=== PATIENT | male | born 1985 | race Two or more races ===

== ENCOUNTER 2023-05-05 01:14 | Observation (INO) | payer OTHER ==
[2023-05-05] MEDS ORDERED: SODIUM CHLORIDE 0.9% 500 ML INFUS.BAG IV ONE ×2 (01:23→03:19)
[2023-05-05 02:20] LABS: BASO % 0.4 % (0-2.0); EOS % 0.7 % (0-4.5); HEMATOCRIT 43.8 % (35.4-49); HEMOGLOBIN 14.7 GM/dL (11.7-16.9); LYMPH % 41.3 % (8-40); MCH 30.1 pg (25.7-33.7); MCHC 33.6 g/dl (32.0-35.9); MEAN CELL VOLUME 89.4 fl (80-96); MEAN PLT VOLUME 9.4 fl (7.5-11.1); NEUT % 52.6 % (42.8-82.8); PLATELET COUNT 167 10^3/uL (134-434); RDW 14.4 % (11.9-15.9); WHITE BLOOD COUNT 5.6 K/mm3 (4.0-10.0)
[2023-05-05 02:34] LABS: INR 1.12 (0.83-1.09)
[2023-05-05 02:37] LABS: ACTIVATED PTT 25.9 SECONDS (25.2-36.5)
[2023-05-05 02:41] LABS: CHLORIDE 113 mmol/L (98-107); POTASSIUM 5.5 mmol/L (3.5-5.1); SODIUM 141 mmol/L (136-145)
[2023-05-05 02:44] LABS: CALCIUM 8.2 mg/dL (8.5-10.1)
[2023-05-05 02:45] LABS: ALBUMIN 3.9 g/dl (3.4-5.0); ANION GAP 7 MMOL/L (8-16); BLOOD UREA NITROGEN 11.1 mg/dL (7-18); CO2 22 mmol/L (21-32); GLUCOSE,RANDOM 90 mg/dL (74-106); MAGNESIUM 2.3 mg/dL (1.8-2.4)
[2023-05-05 02:47] LABS: CREATININE 1.1 mg/dL (0.55-1.3); SGOT/AST 55 U/L (15-37); SGPT/ALT 47 U/L (13-61)
[2023-05-05 02:48] LABS: BILIRUBIN,TOTAL 0.3 mg/dL (0.2-1)
[2023-05-05 02:49] LABS: TOT PROT 8.1 g/dl (6.4-8.2)
[2023-05-05 02:50] LABS: ALK PHOS 90 U/L (45-117)
[2023-05-05 04:57] LABS: PH,URINE 5.5 (5.0-8.0); URINE APPEARANCE CLEAR; URINE BILIRUBIN NEGATIVE (NEGATIVE); URINE COLOR YELLOW; URINE GLUCOSE (UA) NEGATIVE (NEGATIVE); URINE KETONE NEGATIVE (NEGATIVE); URINE LEUK ESTERASE NEGATIVE (NEGATIVE); URINE NITRITE NEGATIVE (NEGATIVE); URINE PROTEIN NEGATIVE (NEGATIVE); URINE UROBILINOGEN 0.2 mg/dL (0.2-1.0)
[2023-05-05 05:03] LABS: PHENCYCLIDINE,URINE NEGATIVE (NEGATIVE)
[2023-05-05 05:05] LABS: COCAINE, UR NEGATIVE (NEGATIVE); METHADONE, UR NEGATIVE (NEGATIVE); OPIATES, URI NEGATIVE (NEGATIVE); URINE AMPHETAMINES NEGATIVE (NEGATIVE); URINE BARBITURATES NEGATIVE (NEGATIVE)
[2023-05-05 05:12] LABS: URINE BENZODIAZEPINES POSITIVE (NEGATIVE)
[2023-05-05] MEDS ORDERED: levETIRAcetam 500 MG/5 ML INJECTION VIAL IVPB ONE (05:12)
[2023-05-05] MEDS ORDERED: DOCUSATE SODIUM 100 MG CAPSULE (FP) PO PRN (05:23)
[2023-05-05] MEDS ORDERED: ACETAMINOPHEN 1000 MG/100 ML BAG IVPB PRN (05:26)
[2023-05-05 06:15] LABS: VENOUS BASE EXCESS -14.5 mmol/L (-2-2); VENOUS O2 SATURATION 88.6 % (70-80); VENOUS PH 7.265 (7.310-7.410)
[2023-05-05] MEDS: SODIUM CHLORIDE 1,000 ML IV SCH ×2 (06:18→22:10)
[2023-05-05 06:25] LABS: POTASSIUM 4.2 mmol/L (3.5-5.1)
[2023-05-05 06:27] LABS: BLOOD UREA NITROGEN 9.2 mg/dL (7-18)
[2023-05-05 07:39] VITALS: BMI 28.7
[2023-05-05] MEDS: LACOSAMIDE 100 MG TABLET PO SCH (10:30)
[2023-05-05] MEDS: cloBAZam 10 MG TABLET PO SCH (10:35)
[2023-05-05 17:48] VITALS: RESP 20
[2023-05-05] MEDS ORDERED: cloBAZam 10 MG TABLET PO SCH (22:00)
[2023-05-05] MEDS: levETIRAcetam 500 MG TABLET (FP) PO SCH (22:04)
[2023-05-05] MEDS ORDERED: LACOSAMIDE 50 MG TABLET PO SCH (22:09)
[2023-05-05] MEDS: LACOSAMIDE 50 MG TABLET PO SCH (22:21)
[2023-05-06] MEDS: LACOSAMIDE 100 MG TABLET PO SCH (00:22)
[2023-05-06] MEDS ORDERED: ACETAMINOPHEN 325 MG TABLET (FP) PO PRN (05:23)
[2023-05-06] MEDS: SODIUM CHLORIDE 1,000 ML IV SCH ×2 (05:42→12:05)
[2023-05-06 09:19] LABS: POTASSIUM 3.9 mmol/L (3.5-5.1)
[2023-05-06 09:23] LABS: ALBUMIN 3.2 g/dl (3.4-5.0)
[2023-05-06 09:24] LABS: BLOOD UREA NITROGEN 7.9 mg/dL (7-18); CALCIUM 8.5 mg/dL (8.5-10.1); MAGNESIUM 1.9 mg/dL (1.8-2.4)
[2023-05-06 09:24] LABS: BASO % 0.4 % (0-2.0); HEMATOCRIT 36.7 % (35.4-49); HEMOGLOBIN 12.6 GM/dL (11.7-16.9); LYMPH % 33.5 % (8-40); MCH 30.5 pg (25.7-33.7); MCHC 34.2 g/dl (32.0-35.9); MEAN CELL VOLUME 89.2 fl (80-96); MEAN PLT VOLUME 9.5 fl (7.5-11.1); MONO % 6.4 % (3.8-10.2); NEUT % 58.7 % (42.8-82.8); PLATELET COUNT 130 10^3/uL (134-434); RBC 4.12 M/mm3 (4.00-5.60); RDW 14.5 % (11.9-15.9); WHITE BLOOD COUNT 5.8 K/mm3 (4.0-10.0)
[2023-05-06 09:27] LABS: BILIRUBIN,TOTAL 0.4 mg/dL (0.2-1); CREATININE 0.8 mg/dL (0.55-1.3); PHOSPHOROUS 2.8 mg/dL (2.5-4.9); TOT PROT 6.1 g/dl (6.4-8.2)
[2023-05-06 09:29] LABS: ACTIVATED PTT 26.6 SECONDS (25.2-36.5)
[2023-05-06 09:31] LABS: INR 1.15 (0.83-1.09); PROTHROMBIN TIME (PATIENT) 13.3 SEC (9.7-13.0)
[2023-05-06] MEDS: cloBAZam 10 MG TABLET PO SCH (10:11)
[2023-05-06] MEDS: LACOSAMIDE 50 MG TABLET PO SCH (10:12)
[2023-05-06] MEDS: levETIRAcetam 500 MG TABLET (FP) PO SCH (10:13)
[2023-05-06 14:11] VITALS: BP 147/85; PULSE 65; TEMP 98
== END 2023-05-06 15:57 | disposition home or self-care (01) ==
LOC: JER 01:14 → INTOOBSV 03:53 → JERBED 03:53 → UNDOADMOB 03:53 → JERBED 03:53 → UNDOADMOB 05:21 → JERBED 05:21 → J6S 09:19
PROVIDERS: ADMIT Internal Medicine; ATTEND Internal Medicine
PROC: 3E033NZ Introduction of Analgesics, Hypnotics, Sedatives into Peripheral Vein, Percutaneous Approach (ICD-10-PCS; principal; 2023-05-05)
PROC: 3E033GC Introduction of Other Therapeutic Substance into Peripheral Vein, Percutaneous Approach (ICD-10-PCS; 2023-05-05)
PROC: 3E0337Z Introduction of Electrolytic and Water Balance Substance into Peripheral Vein, Percutaneous Approach (ICD-10-PCS; 2023-05-05)
DX: G40.909 Epilepsy, unspecified, not intractable, without status epilepticus (principal); F10.99 Alcohol use, unspecified with unspecified alcohol-induced disorder; M62.82 Rhabdomyolysis
CPT/HCPCS: 36415; 70450-TC; 71045-TC-FY; 80048; 80053; 80177; 80307; 81003; 82550; 82553; 82803; 82962; 83605; 83735; 84100; 84484; 85025; 85610; 85730; 86850; 86900; 86901; 87086; 93005; 93010; 96361; 96374; 96375; 99285-25; G0378

== ENCOUNTER 2024-02-11 16:17 | Emergency (ER) | payer MEDICARE, OTHER ==
[2024-02-11 16:26] VITALS: BP 136/69; PULSE 66; RESP 20; TEMP 98.6; BMI 30.4
[2024-02-11] MEDS ORDERED: DEXAMETHASONE SOD PHOSPHATE 10 MG/1 ML VIAL ONE (17:24)
[2024-02-11] MEDS: DEXAMETHASONE SOD PHOSPHATE 10 MG/1 ML VIAL IM ONE (17:32)
== END 2024-02-11 17:40 | disposition home or self-care (01) ==
LOC: JERFT 16:17
PROC: 3E023GC Introduction of Other Therapeutic Substance into Muscle, Percutaneous Approach (ICD-10-PCS; principal; 2024-02-11)
DX: M54.31 Sciatica, right side (principal)
CPT/HCPCS: 99284-25; J1100

== ENCOUNTER 2024-02-28 09:45 | Emergency (ER) | payer MEDICARE, OTHER ==
[2024-02-28 10:22] VITALS: BMI 29.9
[2024-02-28] MEDS: SODIUM CHLORIDE 0.9% 500 ML INFUS.BAG IV STA (10:47)
[2024-02-28 10:53] LABS: BASO % 0.9 % (0-2.0); EOS % 1.3 % (0-4.5); LYMPH % 28.7 % (8-40); MCHC 34.2 g/dl (32.0-35.9); MEAN CELL VOLUME 90.6 fl (80-96); MEAN PLT VOLUME 9.5 fl (7.5-11.1); MONO % 7.7 % (3.8-10.2); NEUT % 61.4 % (42.8-82.8); PLATELET COUNT 131 10^3/uL (134-434); RBC 4.53 M/mm3 (4.00-5.60); RDW 14.2 % (11.9-15.9); WHITE BLOOD COUNT 5.6 K/mm3 (4.0-10.0)
[2024-02-28 10:54] LABS: URINE APPEARANCE CLEAR; URINE BILIRUBIN NEGATIVE (NEGATIVE); URINE COLOR YELLOW; URINE GLUCOSE (UA) NEGATIVE (NEGATIVE); URINE KETONE NEGATIVE (NEGATIVE); URINE LEUK ESTERASE NEGATIVE (NEGATIVE); URINE NITRITE NEGATIVE (NEGATIVE); URINE PROTEIN NEGATIVE (NEGATIVE); URINE UROBILINOGEN 0.2 mg/dL (0.2-1.0)
[2024-02-28 11:49] LABS: CHLORIDE 108 mmol/L (98-107); POTASSIUM 4.2 mmol/L (3.5-5.1); SODIUM 138 mmol/L (136-145)
[2024-02-28 11:51] LABS: ALBUMIN 3.8 g/dl (3.4-5.0); CALCIUM 9.1 mg/dL (8.5-10.1)
[2024-02-28 11:52] LABS: ANION GAP 6 mmol/L (4-13); BLOOD UREA NITROGEN 10.7 mg/dL (7-18); CO2 25 mmol/L (21-32); GLUCOSE,RANDOM 109 mg/dL (74-106); MAGNESIUM 2.1 mg/dL (1.8-2.4)
[2024-02-28 11:55] LABS: SGOT/AST 22 U/L (15-37); SGPT/ALT 39 U/L (13-61)
[2024-02-28 11:57] LABS: BILIRUBIN,TOTAL 0.2 mg/dL (0.2-1); TOT PROT 7.6 g/dl (6.4-8.2)
[2024-02-28 11:58] LABS: ALK PHOS 87 U/L (45-117)
[2024-02-28 14:18] VITALS: BP 131/70; PULSE 72; RESP 16; TEMP 98
[2024-02-28 16:16] LABS: URINE BARBITURATES NEGATIVE (NEGATIVE)
[2024-02-28 16:17] LABS: COCAINE, UR NEGATIVE (NEGATIVE); METHADONE, UR NEGATIVE (NEGATIVE); OPIATES, URI NEGATIVE (NEGATIVE); PHENCYCLIDINE,URINE NEGATIVE (NEGATIVE); URINE AMPHETAMINES NEGATIVE (NEGATIVE); URINE BENZODIAZEPINES POSITIVE (NEGATIVE)
== END 2024-02-28 14:22 | disposition home or self-care (01) ==
LOC: JER 09:45
DX: R55 Syncope and collapse (principal)
CPT/HCPCS: 36415; 80053; 80177; 80307; 81003; 82550; 82553; 82962; 83605; 83735; 84484; 85025; 93005; 93010; 99284-25